=== PATIENT | female | born 1995 | race Caucasian/White ===

== ENCOUNTER 2018-05-17 07:14 | Emergency (ER) | payer OTHER ==
[~2018-05-17] VITALS: Ht 165.1 cm; Wt 57.6 kg
== END 2018-05-17 11:04 | disposition home or self-care (01) ==
LOC: ER 07:14
DX: B34.9 Viral infection, unspecified (principal)

== ENCOUNTER 2018-06-07 13:11 | Emergency (ER) | payer OTHER ==
[~2018-06-07] VITALS: Ht 165.1 cm; Wt 56.2 kg
[2018-06-07] MEDS ORDERED: FLUCONAZOL10 MG/1 ML (13:31)
[2018-06-07] MEDS ORDERED: BENADRYL25 MG (13:31)
[2018-06-07] MEDS ORDERED: ZYRTEC10 M3 (13:31)
[2018-06-07] MEDS ORDERED: NAPROXEN500 MG (13:32)
== END 2018-06-07 18:37 | disposition home or self-care (01) ==
LOC: ER 13:11
DX: N93.8 Other specified abnormal uterine and vaginal bleeding (principal); N83.292 Other ovarian cyst, left side; N83.291 Other ovarian cyst, right side

== ENCOUNTER 2019-09-29 08:46 | Emergency (ER) | payer OTHER ==
[~2019-09-29] VITALS: Ht 165.1 cm; Wt 57.6 kg
[~2019-09-29 08:46] MED LIST: BENADRYL25 MG; FLUCONAZOL10 MG/1 ML; NAPROXEN500 MG; ZYRTEC10 M3
[2019-09-29] MEDS ORDERED: NAPROXEN500 MG PO (11:23)
[2019-09-29] MEDS ORDERED: NORFLEX100MG PO (11:23)
== END 2019-09-29 11:37 | disposition home or self-care (01) ==
LOC: ER 08:46
DX: M54.5 Low back pain (principal)

== ENCOUNTER 2019-10-20 09:05 | Emergency (ER) | payer OTHER ==
[~2019-10-20] VITALS: Ht 165.1 cm; Wt 56.7 kg
[~2019-10-20 09:05] MED LIST changes: +NAPROXEN500 MG PO; +NORFLEX100MG PO
[2019-10-20] MEDS ORDERED: IRON PO (09:09)
[2019-10-20] MEDS ORDERED: ZYRTEC10 M3 PO (09:09)
== END 2019-10-20 11:31 | disposition home or self-care (01) ==
LOC: ER 09:05
DX: J02.8 Acute pharyngitis due to other specified organisms (principal); B96.0 Mycoplasma pneumoniae [M. pneumoniae] as the cause of diseases classified elsewhere; J06.9 Acute upper respiratory infection, unspecified

== ENCOUNTER 2020-04-22 12:49 | Emergency (ER) | payer OTHER ==
[~2020-04-22] VITALS: Ht 165.1 cm; Wt 56.7 kg
[~2020-04-22 12:49] MED LIST changes: +IRON PO; +ZYRTEC10 M3 PO
== END 2020-04-22 17:57 | disposition home or self-care (01) ==
LOC: ER 12:49
DX: N93.8 Other specified abnormal uterine and vaginal bleeding (principal)

== ENCOUNTER 2020-12-27 16:22 | Emergency (ER) | payer OTHER ==
[~2020-12-27] VITALS: Ht 165.1 cm; Wt 55.8 kg
[2020-12-27] MEDS ORDERED: KETO10TA2 PO (20:44)
== END 2020-12-27 21:35 | disposition home or self-care (01) ==
LOC: ER 16:22
DX: R51.9 Headache, unspecified (principal)